=== PATIENT | male | born 2000 | race Two or more races ===

== ENCOUNTER 2020-09-11 08:44 | Observation (INO) | payer OTHER ==
[~2020-09-11] VITALS: Ht 172.7 cm; Wt 85.5 kg
[2020-09-11] VITALS (7 sets, daily range): BP systolic 109–146; BP diastolic 41–68
[2020-09-11] MEDS ORDERED: ONDANSETRON PF 4 MG/2 ML VIAL. IVP ONE (09:30)
[2020-09-11] MEDS ORDERED: fentaNYL PF VIAL 100 MCG/2 ML VIAL IVP ONE (09:30)
[2020-09-11 09:49] LABS: BASO % 0 % (0-3); EOS % 0 % (0-3); HEMATOCRIT 41.6 % (39.0-53.0); HEMOGLOBIN 14.2 g/dL (13.0-17.5); LYMPH # 1.1 x10^3/uL (1.0-4.8); LYMPH % 8 % (24-48); MEAN CORPUSCULAR HEMOGLOBIN 30 pg (25-35); MEAN CORPUSCULAR HGB CONC 34 g/dL (31-37); MEAN CORPUSCULAR VOLUME 88 fL (79-100); MONO # 0.7 x10^3/uL (0.0-1.1); MONO % 6 % (0-9); NEUT # 11.6 x10^3/uL (1.8-7.7); NEUT % 86 % (31-73); PLATELET COUNT 212 x10^3/uL (140-400); RED BLOOD COUNT 4.72 x10^6/uL (4.30-5.70); RED CELL DISTRIBUTION WIDTH 12.8 % (11.5-14.5); WHITE BLOOD COUNT 13.4 x10^3/uL (4.0-11.0)
[2020-09-11 09:51] LABS: BILIRUBIN,URINE NEGATIVE (NEG); CLARITY,URINE CLEAR; COLOR,URINE YELLOW; NITRITE,URINE NEGATIVE (NEG); PROTEIN,URINE NEGATIVE (NEG-TRACE)
[2020-09-11] MEDS ORDERED: IOHEXOL 300 MG/ML 100ML VIAL. IV ONE (10:00)
[2020-09-11 10:01] LABS: CALCIUM 8.9 mg/dL (8.5-10.1); CREATININE 1.4 mg/dL (0.7-1.3); POTASSIUM 3.7 mmol/L (3.5-5.1)
[2020-09-11 10:02] LABS: BACTERIA,URINE 0 /HPF (0-FEW); RBC,URINE 0 /HPF (0-2); WBC,URINE 0 /HPF (0-4)
[2020-09-11 10:03] LABS: AMORPHOUS SEDIMENT,UR PRESENT /HPF
[2020-09-11 10:07] LABS: ALBUMIN 4.1 g/dL (3.4-5.0); ALBUMIN/GLOBULIN RATIO 1.1 (1.0-1.7); TOTAL BILIRUBIN 0.9 mg/dL (0.2-1.0); TOTAL PROTEIN 7.9 g/dL (6.4-8.2)
[2020-09-11] MEDS ORDERED: CONTRAST GIVEN. MC PRN (10:15)
[2020-09-11 10:20] LABS: % LYMPHS 12 % (24-48); % MONOS 8 % (0-10); % SEGS 80 % (35-66); PLT ESTIMATE ADEQUATE (ADEQUATE)
--- NOTE | 2020-09-11 10:40 | RAD ---
INDICATION: Reason: RLQ pain / Spl. Instructions: IV OMNI 300 75 MLS / History: . COMPARISON: None. TECHNIQUE: Axial CT images obtained through the abdomen and pelvis with contrast. One or more of the following individualized dose reduction techniques were utilized for this examinat ion: 1. Automated exposure control; 2. Adjustment of the mA and/or kV according to patient size; 3 . Use of iterative reconstruction technique. FINDINGS: No abdominal aortic aneurysm. No intrahepatic bile duct dilation. Spleen is unremarkable. No hydronephrosis. Urinary bladder is partially distended. Small free fluid in the pelvis. The tip of the appendix measures up to proximately 12 mm and is distended with fluid with some adjace nt edema to the fat. There is an appendicolith proximal to this region. No dilated loops of bowel to suggest obstruction. IMPRESSION: * The tip of the appendix is dilated with fluid-filled lumen and adjacent edema to the fat. This is concerning for early tip appendicitis. Report called to the ER at 10:35 AM. Electronically signed by: Noe Reyes MD (09/11/2020 10:37 AM) [id number]
[2020-09-11] MEDS ORDERED: IV NORMAL SALINE 1000ML BAG 1,000 ML IV ONE ×2 (10:45→12:30)
--- NOTE | 2020-09-11 10:55 | ED.ADGEN ---
Past Medical History Past Medical History: No Pertinent History Past Surgical History: No Surgical History Smoking Status: Never Smoker Alcohol Use: None General Adult EDM: Chief Complaint: ABDOMINAL PAIN HPI: HPI: Patient is a 19 year old male presenting with low abdominal pain since yesterday. States the pain is been getting worse and he has had 1 episode of loose stools yesterday. One episode of nonbloody nonbilious emesis today. Denies any fevers, cough, shortness of breath. Denies any hematuria or dysuria. Says the pain radiates to his testicles but has no direct testicular pain. States the pain is sharp and worse with movement, improved by laying down with his hips flexed. No past medical or surgical history. Last p.o. intake yesterday, has not had anything today. Review of Systems: Review of Systems: All other systems within normal limits except for as noted in the HPI Current Medications: Current Medications Medications (Trade) Dose Ordered Sig/Aramis Start Time Stop Time Status Last Admin Dose Admin Fentanyl Citrate (Fentanyl 2ml Vial) 75 mcg 1X ONCE 09/11/20 09:30 09/11/20 09:31 DC 09/11/20 09:36 75 MCG Info (CONTRAST GIVEN -- Rx MONITORING) 1 each PRN DAILY PRN 09/11/20 10:15 09/13/20 10:14 Iohexol (Omnipaque 300 Mg/ml) 75 ml 1X ONCE 09/11/20 10:00 09/11/20 10:02 DC 09/11/20 10:13 75 ML Ondansetron HCl (Zofran) 4 mg 1X ONCE 09/11/20 09:30 09/11/20 09:31 DC 09/11/20 09:35 4 MG Sodium Chloride 1,000 ml @ 1,000 mls/hr 1X ONCE 09/11/20 10:45 09/11/20 11:44 Allergies: Allergies: Allergies Coded Allergies Type Severity Reaction Last Updated Verified No Known Drug Allergies 09/11/20 No Physical Exam: PE: Constitutional: Well developed, well nourished, no acute distress, non-toxic appearance. [] HENT: Normocephalic, atraumatic, bilateral external ears normal, nose normal. [] Eyes: PERRLA, conjunctiva normal, no discharge. [] Neck: No rigidity, supple, no stridor. [] Cardiovascular: Regular rate and rhythm, brisk cap refill [] Lungs & Thorax: Non labored symmetric respirations, no tachypnea or respiratory distress [] Abdomen: Soft, nondistended. Skin: Warm, dry, no erythema, no rash, RLQ tender with guarding [] Back: Unremarkable Extremities: No deformities, range of motion grossly intact, no lower extremity edema [] Neurologic: Alert and oriented X 3, no focal deficits noted. [] Psychologic: Affect normal, judgement normal, mood normal. [] Current Patient Data: Labs: Laboratory Tests Test 09/11/20 09:30 White Blood Count 13.4 x10^3/uL (4.0-11.0) H Red Blood Count 4.72 x10^6/uL (4.30-5.70) Hemoglobin 14.2 g/dL (13.0-17.5) Hematocrit 41.6 % (39.0-53.0) Mean Corpuscular Volume 88 fL (79-100) Mean Corpuscular Hemoglobin 30 pg (25-35) Mean Corpuscular Hemoglobin Concent 34 g/dL (31-37) Red Cell Distribution Width 12.8 % (11.5-14.5) Platelet Count 212 x10^3/uL (140-400) Neutrophils (%) (Auto) 86 % (31-73) H Lymphocytes (%) (Auto) 8 % (24-48) L Monocytes (%) (Auto) 6 % (0-9) Eosinophils (%) (Auto) 0 % (0-3) Basophils (%) (Auto) 0 % (0-3) Neutrophils # (Auto) 11.6 x10^3/uL (1.8-7.7) H Lymphocytes # (Auto) 1.1 x10^3/uL (1.0-4.8) Monocytes # (Auto) 0.7 x10^3/uL (0.0-1.1) Eosinophils # (Auto) 0.0 x10^3/uL (0.0-0.7) Basophils # (Auto) 0.0 x10^3/uL (0.0-0.2) Segmented Neutrophils % 80 % (35-66) H Lymphocytes % 12 % (24-48) L Monocytes % 8 % (0-10) Platelet Estimate Adequate (ADEQUATE) Urine Collection Type Unknown Urine Color Yellow Urine Clarity Clear Urine pH 7.0 (<5.0-8.0) Urine Specific [place] >=1.030 (1.000-1.030) Urine Protein Negative mg/dL (NEG-TRACE) Urine Glucose (UA) Negative mg/dL (NEG) Urine Ketones (Stick) Trace mg/dL (NEG) Urine Blood Negative (NEG) Urine Nitrite Negative (NEG) Urine Bilirubin Negative (NEG) Urine Urobilinogen Dipstick 1.0 mg/dL (0.2 mg/dL) Urine Leukocyte Esterase Negative (NEG) Urine RBC 0 /HPF (0-2) Urine WBC 0 /HPF (0-4) Urine Squamous Epithelial Cells Few /LPF Urine Amorphous Sediment Present /HPF Urine Bacteria 0 /HPF (0-FEW) Urine Mucus Mod /LPF Sodium Level 138 mmol/L (136-145) Potassium Level 3.7 mmol/L (3.5-5.1) Chloride Level 101 mmol/L (98-107) Carbon Dioxide Level 26 mmol/L (21-32) Anion Gap 11 (6-14) Blood Urea Nitrogen 16 mg/dL (8-26) Creatinine 1.4 mg/dL (0.7-1.3) H Estimated GFR (Cockcroft-Gault) 64.0 BUN/Creatinine Ratio 11 (6-20) Glucose Level 122 mg/dL (70-99) H Calcium Level 8.9 mg/dL (8.5-10.1) Total Bilirubin 0.9 mg/dL (0.2-1.0) Aspartate Amino Transferase (AST) 15 U/L (15-37) Alanine Aminotransferase (ALT) 34 U/L (16-63) Alkaline Phosphatase 82 U/L (46-116) Total Protein 7.9 g/dL (6.4-8.2) Albumin 4.1 g/dL (3.4-5.0) Albumin/Globulin Ratio 1.1 (1.0-1.7) Lipase 100 U/L (73-393) Laboratory Tests 09/11/20 09:30 Laboratory Tests 09/11/20 09:30 Vital Signs: Vital Signs Date Time Temp Pulse Resp B/P (MAP) Pulse Ox O2 Delivery O2 Flow Rate FiO2 09/11/20 10:16 20 96 Room Air 09/11/20 08:50 99.1 71 139/66 (90) 99.1 EKG: EKG: [] Heart Score: Risk Factors: Risk Factors: DM, Current or recent (<one month) smoker, HTN, HLP, family history of CAD, obesity. Risk Scores: Score 0 - 3: 2.5% MACE over next 6 weeks - Discharge Home Score 4 - 6: 20.3% MACE over next 6 weeks - Admit for Clinical Observation Score 7 - 10: 72.7% MACE over next 6 weeks - Early Invasive Strategies Radiology/Procedures: Radiology/Procedures: NDICATION: Reason: RLQ pain / Spl. Instructions: IV OMNI 300 75 MLS / History: . COMPARISON: None. TECHNIQUE: Axial CT images obtained through the abdomen and pelvis with contrast. One or more of the following individualized dose reduction techniques were utilized for this examination: 1. Automated exposure control; 2. Adjustment of the mA and/or kV according to patient size; 3. Use of iterative reconstruction technique. FINDINGS: No abdominal aortic aneurysm. No intrahepatic bile duct dilation. Spleen is unremarkable. No hydronephrosis. Urinary bladder is partially distended. Small free fluid in the pelvis. The tip of the appendix measures up to proximately 12 mm and is distended with fluid with some adjacent edema to the fat. There is an appendicolith proximal to this region. No dilated loops of bowel to suggest obstruction. IMPRESSION: * The tip of the appendix is dilated with fluid-filled lumen and adjacent edema to the fat. This is concerning for early tip appendicitis. Report called to the ER at 10:35 AM. [] Course & Med Decision Making: Course & Med Decision Making Pertinent Labs and Imaging studies reviewed. (See chart for details) Dr. Payton consulted for general surgery, will admit to hospitalist. [] Constanza Disclaimer: Constanza Disclaimer: This electronic medical record was generated, in whole or in part, using a voice recognition dictation system. Departure Departure Impression: Primary Impression: Acute appendicitis Disposition: 09 ADMITTED INPT THIS HOSP Admitting Physician: NORMAN Condition: STABLE Referrals: NO PCP (PCP) RACHAEL CORNELL MD Sep 11, 2020 10:55
[2020-09-11] MEDS ORDERED: ONDANSETRON PF 4 MG/2 ML VIAL. IV PRN (11:00)
[2020-09-11] MEDS: IV NORMAL SALINE 1000ML BAG 1,000 ML IV SCH ×2 (11:00→19:00)
[2020-09-11] MEDS ORDERED: PIPERACILLIN/TAZOBACTAM 3.375 GM in IV NORMAL SALINE 50ML 50 ML IV ONE (11:00)
[2020-09-11] MEDS: fentaNYL PF VIAL 100 MCG/2 ML VIAL IV PRN ×2 (11:26→12:23)
[2020-09-11] MEDS ORDERED: PIP/TAZO PER PHARMACY MC PRN (12:30)
[2020-09-11] MEDS: MORPHINE SULFATE 4 MG/ML VIAL. IV PRN (14:49)
[2020-09-11] MEDS ORDERED: PROCHLORPERAZINE 10 MG/2 ML VIAL. IVP PRN (15:15)
[2020-09-11] MEDS ORDERED: fentaNYL PF VIAL 100 MCG/2 ML VIAL IVP PRN ×2 (15:15)
[2020-09-11] MEDS ORDERED: MORPHINE SULFATE 2 MG/ML VIAL. IVP PRN (15:15)
[2020-09-11] MEDS ORDERED: IV RINGERS,LACTATED 1000ML 1,000 ML IV SCH (15:15)
[2020-09-11] MEDS ORDERED: HYDROmorphone 2 MG/ML VIAL IVP PRN (15:15)
[2020-09-11] MEDS ORDERED: MIDAZOLAM HCL/PF 2 MG/2 ML VIAL. ONE (15:23)
[2020-09-11] MEDS ORDERED: ROCURONIUM 50 MG/5 ML VIAL. ONE ×2 (15:23→17:13)
[2020-09-11] MEDS ORDERED: PROPOFOL 10 MG/ML (20ML) VIAL. IV ONE (15:23)
[2020-09-11] MEDS ORDERED: fentaNYL PF VIAL 250 MCG/5 ML VIAL ONE (15:23)
[2020-09-11] MEDS ORDERED: LIDOCAINE 2% PF 5 ML VIAL. ONE (15:23)
[2020-09-11] MEDS ORDERED: BUPIVACAINE-EPI 0.5% 30 ML VIAL KIT. ONE (16:12)
[2020-09-11] MEDS ORDERED: cefOXitin SODIUM IV Push 2 GM VIAL. IVP SCH (16:30)
--- NOTE | 2020-09-11 16:38 | PDOC1 ---
History and Physical Date of Admission Date of Admission DATE: 09/11/20 TIME: 16:38 Source Source: Chart review, Patient History of Present Illness History of Present Illness Mr. Shonda De Santiago, is a 19 year old male admit for acute abd pain. he has had new, lower quad abdominal pain since yesterday. Today, the pain was worse and he has had diarrhea, and has vomited one time. Denies any fevers, cough, shortness of breath. he has been eval by Dr. Payton, and plan has been made for acute appy, . The pain radiates to his testicles but has no direct testicular pain. Pain 6/10, btter with meds, he appears calm, worse with any movement . No past medical or surgical history. Mr. De Santiago has not eaten anything today Past Medical History Cardiovascular: No pertinent hx Pulmonary: No pertinent hx Hepatobiliary: No pertinent hx Psych: No pertinent hx Rheumatologic: No pertinent hx Infectious disease: No pertinent hx Renal/: No pertinent hx Past Surgical History Past Surgical History: No pertinent history Family History Family History: Family History Unknown Social History Smoke: No ALCOHOL: none Drugs: None Current Problem List Problem List Problems Medical Problems: (1) Acute appendicitis Status: Acute Current Medications Current Medications Current Medications Fentanyl Citrate (Fentanyl 2ml Vial) 75 mcg 1X ONCE IVP Last administered on 09/11/20at 09:36; Start 09/11/20 at 09:30; Stop 09/11/20 at 09:31; Status DC Ondansetron HCl (Zofran) 4 mg 1X ONCE IVP Last administered on 09/11/20at 09:35; Start 09/11/20 at 09:30; Stop 09/11/20 at 09:31; Status DC Iohexol (Omnipaque 300 Mg/ml) 75 ml 1X ONCE IV Last administered on 09/11/20at 10:13; Start 09/11/20 at 10:00; Stop 09/11/20 at 10:02; Status DC Info (CONTRAST GIVEN -- Rx MONITORING) 1 each PRN DAILY PRN MC SEE COMMENTS; Start 09/11/20 at 10:15; Stop 09/13/20 at 10:14 Sodium Chloride 1,000 ml @ 1,000 mls/hr 1X ONCE IV Last administered on 09/11/20at 10:58; Start 09/11/20 at 10:45; Stop 09/11/20 at 11:44; Status DC Piperacillin Sod/ Tazobactam Sod 3.375 gm/Sodium Chloride 50 ml @ 100 mls/hr 1X ONCE IV Last administered on 09/11/20at 10:58; Start 09/11/20 at 11:00; Stop 09/11/20 at 11:29; Status DC Ondansetron HCl (Zofran) 4 mg PRN Q8HRS PRN IV NAUSEA/VOMITING; Start 09/11/20 at 11:00; Stop 09/12/20 at 10:59 Fentanyl Citrate (Fentanyl 2ml Vial) 50 mcg PRN Q1HR PRN IV PAIN Last administered on 09/11/20at 12:23; Start 09/11/20 at 11:00; Stop 09/12/20 at 10:59 Sodium Chloride 1,000 ml @ 75 mls/hr [id number] IV ; Start 09/11/20 at 11:00; Stop 09/12/20 at 10:59 Morphine Sulfate (Morphine Sulfate) 4 mg PRN Q2HR PRN IV PAIN Last administered on 09/11/20at 14:49; Start 09/11/20 at 12:30 Sodium Chloride 1,000 ml @ 1,000 mls/hr 1X ONCE IV Last administered on 09/11/20at 12:26; Start 09/11/20 at 12:30; Stop 09/11/20 at 13:29; Status DC Piperacillin Sod/ Tazobactam Sod (Zosyn Per Pharmacy) 1 each PRN DAILY PRN MC SEE COMMENTS; Start 09/11/20 at 12:30 Piperacillin Sod/ Tazobactam Sod 3.375 gm/Sodium Chloride 50 ml @ 100 mls/hr Q6HRS IV ; Start 09/11/20 at 18:00 Fentanyl Citrate (Fentanyl 2ml Vial) 25 mcg PRN Q5MIN PRN IVP MILD PAIN 1-3; Start 09/11/20 at 15:15; Stop 09/12/20 at 15:14 Fentanyl Citrate (Fentanyl 2ml Vial) 50 mcg PRN Q5MIN PRN IVP MODERATE PAIN 4- 6; Start 09/11/20 at 15:15; Stop 09/12/20 at 15:14 Morphine Sulfate (Morphine Sulfate) 1 mg PRN Q10MIN PRN IVP SEVERE PAIN 7-10; Start 09/11/20 at 15:15; Stop 09/12/20 at 15:14 Ringer's Solution 1,000 ml @ 30 mls/hr Q24H IV Last administered on 09/11/20at 16:02; Start 09/11/20 at 15:15; Stop 09/12/20 at 03:14 Hydromorphone HCl (Dilaudid) 0.5 mg PRN Q10MIN PRN IVP SEVERE PAIN 7-10, 2nd CHOICE; Start 09/11/20 at 15:15; Stop 09/12/20 at 15:14 Prochlorperazine Edisylate (Compazine) 5 mg PACU PRN PRN IVP NAUSEA, MRX1; Start 09/11/20 at 15:15; Stop 09/12/20 at 15:14 Propofol (Diprivan) 200 mg STK-MED ONCE IV ; Start 09/11/20 at 15:23; Stop 09/11/20 at 15:23; Status DC Lidocaine HCl (Lidocaine Pf 2% Vial) 5 ml STK-MED ONCE .ROUTE ; Start 09/11/20 at 15:23; Stop 09/11/20 at 15:23; Status DC Midazolam HCl (Versed) 2 mg STK-MED ONCE .ROUTE ; Start 09/11/20 at 15:23; Stop 09/11/20 at 15:23; Status DC Fentanyl Citrate (Fentanyl 5ml Vial) 250 mcg STK-MED ONCE .ROUTE ; Start 09/11/20 at 15:23; Stop 09/11/20 at 15:24; Status DC Rocuronium Victor (Zemuron) 50 mg STK-MED ONCE .ROUTE ; Start 09/11/20 at 15:23; Stop 09/11/20 at 15:24; Status DC Bupivacaine HCl/ Epinephrine Bitart (Sensorcain-Epi 0.5% Kit) 30 ml STK-MED ONCE .ROUTE ; Start 09/11/20 at 16:12; Stop 09/11/20 at 16:12; Status DC Cefoxitin Sodium (Mefoxin) 2 gm 1X PREOP IVP ; Start 09/11/20 at 16:30 Allergies Allergies: Coded Allergies: No Known Drug Allergies (Unverified , 09/11/20) ROS General: YES: Chills; No: Night Sweats, Malaise, Appetite, Other PSYCHOLOGICAL ROS: No: Anxiety, Behavioral Disorder, Concentration difficultie, Decreased libido, Depression, Disorientation, Hallucinations, Hostility, Irritablity, Memory difficulties, Mood Swings, Obsessive thoughts, Physical abuse, Sexual abuse, Sleep disturbances, Suicidal ideation, Other Eyes: No Blurry vision, No Decreased vision, No Double vision, No Dry eyes, No Excessive tearing, No Eye Pain, No Itchy Eyes, No Loss of vision, No Photophobia, No Scotomata, No Uses contacts, No Uses glasses, No Other HEENT: No: Heacaches, Visual Changes, Hearing change, Nasal congestion, Nasal discharge, Oral lesions, Sinus pain, Sore Throat, Epistaxis, Sneezing, Snoring, Tinnitus, Vertigo, Vocal changes, Other Respiratory: No: Cough, Hemoptysis, Orthopnea, Pleuritic Pain, Shortness of breath, SOB with excertion, Sputum Changes, Stridor, Tachypnea, Wheezing, Other Gastrointestinal: Yes Nausea, Yes Abdominal Pain; No Vomiting, No Diarrhea, No Constipation, No Melena, No Hematochezia, No Other Genitourinary: No Dysuria, No Frequency, No Incontinence, No Hematuria, No Retention, No Discharge, No Urgency, No Pain, No Flank Pain, No Other, No , No , No , No , No , No , No Musculoskeletal: No Gait Disturbance, No Joint Pain, No Joint Stiffness, No Joint Swelling, No Muscle Pain, No Muscular Weakness, No Pain In:, No Swelling In:, No Other Neurological: No Behavorial Changes, No Bowel/Bladder ControlChng, No Confusion, No Dizziness, No Gait Disturbance, No Headaches, No Impaired Coord/balance, No Memory Loss, No Numbness/Tingling, No Seizures, No Speech Problems, No Tremors, No Visual Changes, No Weakness, No Other Skin: No Dry Skin, No Eczema, No Hair Changes, No Lumps, No Mole Changes, No Mottling, No Nail Changes, No Pruritus, No Rash, No Skin Lesion Changes, No Other, No Acne Physical Exam General: Alert, Oriented X3, mild distress HEENT: Atraumatic, PERRLA, Mucous membr. moist/pink Lungs: Clear to auscultation, Normal air movement Heart: RRR, no murmurs Extremities: No clubbing, No edema, Normal pulses Skin: No rashes, No significant lesion Neuro: Normal speech, Normal tone, Sensation intact, Cranial nerves 3-12 NL Psych/Mental Status: Mental status NL, Mood NL Vitals Vitals Vital Signs Date Time Temp Pulse Resp B/P (MAP) Pulse Ox O2 Delivery O2 Flow Rate FiO2 09/11/20 15:50 100.4 85 16 154/50 99 Room Air 100.4 Labs Labs Laboratory Tests Test 09/11/20 09:30 09/11/20 11:05 White Blood Count 13.4 x10^3/uL (4.0-11.0) Red Blood Count 4.72 x10^6/uL (4.30-5.70) Hemoglobin 14.2 g/dL (13.0-17.5) Hematocrit 41.6 % (39.0-53.0) Mean Corpuscular Volume 88 fL (79-100) Mean Corpuscular Hemoglobin 30 pg (25-35) Mean Corpuscular Hemoglobin Concent 34 g/dL (31-37) Red Cell Distribution Width 12.8 % (11.5-14.5) Platelet Count 212 x10^3/uL (140-400) Neutrophils (%) (Auto) 86 % (31-73) Lymphocytes (%) (Auto) 8 % (24-48) Monocytes (%) (Auto) 6 % (0-9) Eosinophils (%) (Auto) 0 % (0-3) Basophils (%) (Auto) 0 % (0-3) Neutrophils # (Auto) 11.6 x10^3/uL (1.8-7.7) Lymphocytes # (Auto) 1.1 x10^3/uL (1.0-4.8) Monocytes # (Auto) 0.7 x10^3/uL (0.0-1.1) Eosinophils # (Auto) 0.0 x10^3/uL (0.0-0.7) Basophils # (Auto) 0.0 x10^3/uL (0.0-0.2) Segmented Neutrophils % 80 % (35-66) Lymphocytes % 12 % (24-48) Monocytes % 8 % (0-10) Platelet Estimate Adequate (ADEQUATE) Urine Collection Type Unknown Urine Color Yellow Urine Clarity Clear Urine pH 7.0 (<5.0-8.0) Urine Specific [place] >=1.030 (1.000-1.030) Urine Protein Negative mg/dL (NEG-TRACE) Urine Glucose (UA) Negative mg/dL (NEG) Urine Ketones (Stick) Trace mg/dL (NEG) Urine Blood Negative (NEG) Urine Nitrite Negative (NEG) Urine Bilirubin Negative (NEG) Urine Urobilinogen Dipstick 1.0 mg/dL (0.2 mg/dL) Urine Leukocyte Esterase Negative (NEG) Urine RBC 0 /HPF (0-2) Urine WBC 0 /HPF (0-4) Urine Squamous Epithelial Cells Few /LPF Urine Amorphous Sediment Present /HPF Urine Bacteria 0 /HPF (0-FEW) Urine Mucus Mod /LPF Sodium Level 138 mmol/L (136-145) Potassium Level 3.7 mmol/L (3.5-5.1) Chloride Level 101 mmol/L (98-107) Carbon Dioxide Level 26 mmol/L (21-32) Anion Gap 11 (6-14) Blood Urea Nitrogen 16 mg/dL (8-26) Creatinine 1.4 mg/dL (0.7-1.3) Estimated GFR (Cockcroft-Gault) 64.0 BUN/Creatinine Ratio 11 (6-20) Glucose Level 122 mg/dL (70-99) Calcium Level 8.9 mg/dL (8.5-10.1) Total Bilirubin 0.9 mg/dL (0.2-1.0) Aspartate Amino Transf (AST/SGOT) 15 U/L (15-37) Alanine Aminotransferase (ALT/SGPT) 34 U/L (16-63) Alkaline Phosphatase 82 U/L (46-116) Total Protein 7.9 g/dL (6.4-8.2) Albumin 4.1 g/dL (3.4-5.0) Albumin/Globulin Ratio 1.1 (1.0-1.7) Lipase 100 U/L (73-393) SARS-CoV-2 Antigen (Rapid) Negative (NEGATIVE) Laboratory Tests Test 09/11/20 09:30 09/11/20 11:05 White Blood Count 13.4 x10^3/uL (4.0-11.0) Red Blood Count 4.72 x10^6/uL (4.30-5.70) Hemoglobin 14.2 g/dL (13.0-17.5) Hematocrit 41.6 % (39.0-53.0) Mean Corpuscular Volume 88 fL (79-100) Mean Corpuscular Hemoglobin 30 pg (25-35) Mean Corpuscular Hemoglobin Concent 34 g/dL (31-37) Red Cell Distribution Width 12.8 % (11.5-14.5) Platelet Count 212 x10^3/uL (140-400) Neutrophils (%) (Auto) 86 % (31-73) Lymphocytes (%) (Auto) 8 % (24-48) Monocytes (%) (Auto) 6 % (0-9) Eosinophils (%) (Auto) 0 % (0-3) Basophils (%) (Auto) 0 % (0-3) Neutrophils # (Auto) 11.6 x10^3/uL (1.8-7.7) Lymphocytes # (Auto) 1.1 x10^3/uL (1.0-4.8) Monocytes # (Auto) 0.7 x10^3/uL (0.0-1.1) Eosinophils # (Auto) 0.0 x10^3/uL (0.0-0.7) Basophils # (Auto) 0.0 x10^3/uL (0.0-0.2) Segmented Neutrophils % 80 % (35-66) Lymphocytes % 12 % (24-48) Monocytes % 8 % (0-10) Platelet Estimate Adequate (ADEQUATE) Urine Collection Type Unknown Urine Color Yellow Urine Clarity Clear Urine pH 7.0 (<5.0-8.0) Urine Specific [place] >=1.030 (1.000-1.030) Urine Protein Negative mg/dL (NEG-TRACE) Urine Glucose (UA) Negative mg/dL (NEG) Urine Ketones (Stick) Trace mg/dL (NEG) Urine Blood Negative (NEG) Urine Nitrite Negative (NEG) Urine Bilirubin Negative (NEG) Urine Urobilinogen Dipstick 1.0 mg/dL (0.2 mg/dL) Urine Leukocyte Esterase Negative (NEG) Urine RBC 0 /HPF (0-2) Urine WBC 0 /HPF (0-4) Urine Squamous Epithelial Cells Few /LPF Urine Amorphous Sediment Present /HPF Urine Bacteria 0 /HPF (0-FEW) Urine Mucus Mod /LPF Sodium Level 138 mmol/L (136-145) Potassium Level 3.7 mmol/L (3.5-5.1) Chloride Level 101 mmol/L (98-107) Carbon Dioxide Level 26 mmol/L (21-32) Anion Gap 11 (6-14) Blood Urea Nitrogen 16 mg/dL (8-26) Creatinine 1.4 mg/dL (0.7-1.3) Estimated GFR (Cockcroft-Gault) 64.0 BUN/Creatinine Ratio 11 (6-20) Glucose Level 122 mg/dL (70-99) Calcium Level 8.9 mg/dL (8.5-10.1) Total Bilirubin 0.9 mg/dL (0.2-1.0) Aspartate Amino Transf (AST/SGOT) 15 U/L (15-37) Alanine Aminotransferase (ALT/SGPT) 34 U/L (16-63) Alkaline Phosphatase 82 U/L (46-116) Total Protein 7.9 g/dL (6.4-8.2) Albumin 4.1 g/dL (3.4-5.0) Albumin/Globulin Ratio 1.1 (1.0-1.7) Lipase 100 U/L (73-393) SARS-CoV-2 Antigen (Rapid) Negative (NEGATIVE) VTE Prophylaxis Ordered VTE Prophylaxis Devices: No VTE Pharmacological Prophylaxi: Yes Assessment/Plan Assessment/Plan acute abdominal pain due to acute appendicitis leukocytosis, fever, + SIRS admit to surg, may be able to DC soon Justifications for Admission Other Justification FRITZ SUN MD Sep 11, 2020 16:38
[2020-09-11] MEDS ORDERED: DEXAMETHASONE SOD PHOS 4 MG/ML VIAL ONE (16:49)
[2020-09-11] MEDS ORDERED: ONDANSETRON PF 4 MG/2 ML VIAL. ONE (16:49)
--- NOTE | 2020-09-11 16:53 | PDOC2 ---
CONSULT Date of Consult Date of Consult DATE: 09/11/20 TIME: 16:49 Reason for Consult Reason for Consult: appendicitis Referring Physician Referring Physician: Dr. Liz Identification/Chief Complaint Chief Complaint RLQ abd pain Source Source: Chart review, Patient History of Present Illness Reason for Visit: 19 yo M with 1 day history of abd pain, localizing in RLQ. Associated N/V and diarrhea. No previous episodes. Seen in preop and is feeling better. Past Medical History Cardiovascular: No pertinent hx Past Surgical History Past Surgical History: No pertinent history Family History Family History: No Significant Social History No Current Problem List Problem List Problems Medical Problems: (1) Acute appendicitis Status: Acute Current Medications Current Medications Current Medications Fentanyl Citrate (Fentanyl 2ml Vial) 75 mcg 1X ONCE IVP Last administered on 09/11/20at 09:36; Start 09/11/20 at 09:30; Stop 09/11/20 at 09:31; Status DC Ondansetron HCl (Zofran) 4 mg 1X ONCE IVP Last administered on 09/11/20at 0 9:35; Start 09/11/20 at 09:30; Stop 09/11/20 at 09:31; Status DC Iohexol (Omnipaque 300 Mg/ml) 75 ml 1X ONCE IV Last administered on 09/11/20at 10:13; Start 09/11/20 at 10:00; Stop 09/11/20 at 10:02; Status DC Info (CONTRAST GIVEN -- Rx MONITORING) 1 each PRN DAILY PRN MC SEE COMMENTS; Start 09/11/20 at 10:15; Stop 09/13/20 at 10:14 Sodium Chloride 1,000 ml @ 1,000 mls/hr 1X ONCE IV Last administered on 09/11/20at 10:58; Start 09/11/20 at 10:45; Stop 09/11/20 at 11:44; Status DC Piperacillin Sod/ Tazobactam Sod 3.375 gm/Sodium Chloride 50 ml @ 100 mls/hr 1X ONCE IV Last administered on 09/11/20at 10:58; Start 09/11/20 at 11:00; Stop 09/11/20 at 11:29; Status DC Ondansetron HCl (Zofran) 4 mg PRN Q8HRS PRN IV NAUSEA/VOMITING; Start 09/11/20 at 11:00; Stop 09/12/20 at 10:59 Fentanyl Citrate (Fentanyl 2ml Vial) 50 mcg PRN Q1HR PRN IV PAIN Last administered on 09/11/20at 12:23; Start 09/11/20 at 11:00; Stop 09/12/20 at 10:59 Sodium Chloride 1,000 ml @ 75 mls/hr [id number] IV ; Start 09/11/20 at 11:00; St op 09/12/20 at 10:59 Morphine Sulfate (Morphine Sulfate) 4 mg PRN Q2HR PRN IV PAIN Last administered on 09/11/20at 14:49; Start 09/11/20 at 12:30 Sodium Chloride 1,000 ml @ 1,000 mls/hr 1X ONCE IV Last administered on 09/11/20at 12:26; Start 09/11/20 at 12:30; Stop 09/11/20 at 13:29; Status DC Piperacillin Sod/ Tazobactam Sod (Zosyn Per Pharmacy) 1 each PRN DAILY PRN MC SEE COMMENTS; Start 09/11/20 at 12:30 Piperacillin Sod/ Tazobactam Sod 3.375 gm/Sodium Chloride 50 ml @ 100 mls/hr Q6HRS IV ; Start 09/11/20 at 18:00 Fentanyl Citrate (Fentanyl 2ml Vial) 25 mcg PRN Q5MIN PRN IVP MILD PAIN 1-3; Start 09/11/20 at 15:15; Stop 09/12/20 at 15:14 Fentanyl Citrate (Fentanyl 2ml Vial) 50 mcg PRN Q5MIN PRN IVP MODERATE PAIN 4- 6; Start 09/11/20 at 15:15; Stop 09/12/20 at 15:14 Morphine Sulfate (Morphine Sulfate) 1 mg PRN Q10MIN PRN IVP SEVERE PAIN 7-10; Start 09/11/20 at 15:15; Stop 09/12/20 at 15:14 Ringer's Solution 1,000 ml @ 30 mls/hr Q24H IV Last administered on 09/11/20at 16:02; Start 09/11/20 at 15:15; Stop 09/12/20 at 03:14 Hydromorphone HCl (Dilaudid) 0.5 mg PRN Q10MIN PRN IVP SEVERE PAIN 7-10, 2nd CHOICE; Start 09/11/20 at 15:15; Stop 09/12/20 at 15:14 Prochlorperazine Edisylate (Compazine) 5 mg PACU PRN PRN IVP NAUSEA, MRX1; Start 09/11/20 at 15:15; Stop 09/12/20 at 15:14 Propofol (Diprivan) 200 mg STK-MED ONCE IV ; Start 09/11/20 at 15:23; Stop 09/11/20 at 15:23; Status DC Lidocaine HCl (Lidocaine Pf 2% Vial) 5 ml STK-MED ONCE .ROUTE ; Start 09/11/20 at 15:23; Stop 09/11/20 at 15:23; Status DC Midazolam HCl (Versed) 2 mg STK-MED ONCE .ROUTE ; Start 09/11/20 at 15:23; Stop 09/11/20 at 15:23; Status DC Fentanyl Citrate (Fentanyl 5ml Vial) 250 mcg STK-MED ONCE .ROUTE ; Start 09/11/20 at 15:23; Stop 09/11/20 at 15:24; Status DC Rocuronium [place] (Zemuron) 50 mg STK-MED ONCE .ROUTE ; Start 09/11/20 at 15:23; Stop 09/11/20 at 15:24; Status DC Bupivacaine HCl/ Epinephrine Bitart (Sensorcain-Epi 0.5% Kit) 30 ml STK-MED ONCE .ROUTE ; Start 09/11/20 at 16:12; Stop 09/11/20 at 16:12; Status DC Cefoxitin Sodium (Mefoxin) 2 gm 1X PREOP IVP ; Start 09/11/20 at 16:30 Allergies Allergies: Coded Allergies: No Known Drug Allergies (Unverified , 09/11/20) ROS Gastrointestinal: Yes Nausea, Yes Vomiting, Yes Abdominal Pain, Yes Diarrhea Physical Exam General: Alert, Oriented X3, Cooperative, No acute distress HEENT: Atraumatic Lungs: Normal air movement Abdomen: Soft, Other (TTP RLQ) Extremities: No clubbing, No cyanosis Skin: No rashes, No breakdown Neuro: Normal speech, Sensation intact Psych/Mental Status: Mental status NL, Mood NL Vitals VITALS Vital Signs Date Time Temp Pulse Resp B/P (MAP) Pulse Ox O2 Delivery O2 Flow Rate FiO2 09/11/20 15:50 100.4 85 16 154/50 99 Room Air 100.4 Labs Labs Laboratory Tests Test 09/11/20 09:30 09/11/20 11:05 White Blood Count 13.4 x10^3/uL (4.0-11.0) Red Blood Count 4.72 x10^6/uL (4.30-5.70) Hemoglobin 14.2 g/dL (13.0-17.5) Hematocrit 41.6 % (39.0-53.0) Mean Corpuscular Volume 88 fL (79-100) Mean Corpuscular Hemoglobin 30 pg (25-35) Mean Corpuscular Hemoglobin Concent 34 g/dL (31-37) Red Cell Distribution Width 12.8 % (11.5-14.5) Platelet Count 212 x10^3/uL (140-400) Neutrophils (%) (Auto) 86 % (31-73) Lymphocytes (%) (Auto) 8 % (24-48) Monocytes (%) (Auto) 6 % (0-9) Eosinophils (%) (Auto) 0 % (0-3) Basophils (%) (Auto) 0 % (0-3) Neutrophils # (Auto) 11.6 x10^3/uL (1.8-7.7) Lymphocytes # (Auto) 1.1 x10^3/uL (1.0-4.8) Monocytes # (Auto) 0.7 x10^3/uL (0.0-1.1) Eosinophils # (Auto) 0.0 x10^3/uL (0.0-0.7) Basophils # (Auto) 0.0 x10^3/uL (0.0-0.2) Segmented Neutrophils % 80 % (35-66) Lymphocytes % 12 % (24-48) Monocytes % 8 % (0-10) Platelet Estimate Adequate (ADEQUATE) Urine Collection Type Unknown Urine Color Yellow Urine Clarity Clear Urine pH 7.0 (<5.0-8.0) Urine Specific [place] >=1.030 (1.000-1.030) Urine Protein Negative mg/dL (NEG-TRACE) Urine Glucose (UA) Negative mg/dL (NEG) Urine Ketones (Stick) Trace mg/dL (NEG) Urine Blood Negative (NEG) Urine Nitrite Negative (NEG) Urine Bilirubin Negative (NEG) Urine Urobilinogen Dipstick 1.0 mg/dL (0.2 mg/dL) Urine Leukocyte Esterase Negative (NEG) Urine RBC 0 /HPF (0-2) Urine WBC 0 /HPF (0-4) Urine Squamous Epithelial Cells Few /LPF Urine Amorphous Sediment Present /HPF Urine Bacteria 0 /HPF (0-FEW) Urine Mucus Mod /LPF Sodium Level 138 mmol/L (136-145) Potassium Level 3.7 mmol/L (3.5-5.1) Chloride Level 101 mmol/L (98-107) Carbon Dioxide Level 26 mmol/L (21-32) Anion Gap 11 (6-14) Blood Urea Nitrogen 16 mg/dL (8-26) Creatinine 1.4 mg/dL (0.7-1.3) Estimated GFR (Cockcroft-Gault) 64.0 BUN/Creatinine Ratio 11 (6-20) Glucose Level 122 mg/dL (70-99) Calcium Level 8.9 mg/dL (8.5-10.1) Total Bilirubin 0.9 mg/dL (0.2-1.0) Aspartate Amino Transf (AST/SGOT) 15 U/L (15-37) Alanine Aminotransferase (ALT/SGPT) 34 U/L (16-63) Alkaline Phosphatase 82 U/L (46-116) Total Protein 7.9 g/dL (6.4-8.2) Albumin 4.1 g/dL (3.4-5.0) Albumin/Globulin Ratio 1.1 (1.0-1.7) Lipase 100 U/L (73-393) SARS-CoV-2 Antigen (Rapid) Negative (NEGATIVE) Laboratory Tests Test 09/11/20 09:30 09/11/20 11:05 White Blood Count 13.4 x10^3/uL (4.0-11.0) Red Blood Count 4.72 x10^6/uL (4.30-5.70) Hemoglobin 14.2 g/dL (13.0-17.5) Hematocrit 41.6 % (39.0-53.0) Mean Corpuscular Volume 88 fL (79-100) Mean Corpuscular Hemoglobin 30 pg (25-35) Mean Corpuscular Hemoglobin Concent 34 g/dL (31-37) Red Cell Distribution Width 12.8 % (11.5-14.5) Platelet Count 212 x10^3/uL (140-400) Neutrophils (%) (Auto) 86 % (31-73) Lymphocytes (%) (Auto) 8 % (24-48) Monocytes (%) (Auto) 6 % (0-9) Eosinophils (%) (Auto) 0 % (0-3) Basophils (%) (Auto) 0 % (0-3) Neutrophils # (Auto) 11.6 x10^3/uL (1.8-7.7) Lymphocytes # (Auto) 1.1 x10^3/uL (1.0-4.8) Monocytes # (Auto) 0.7 x10^3/uL (0.0-1.1) Eosinophils # (Auto) 0.0 x10^3/uL (0.0-0.7) Basophils # (Auto) 0.0 x10^3/uL (0.0-0.2) Segmented Neutrophils % 80 % (35-66) Lymphocytes % 12 % (24-48) Monocytes % 8 % (0-10) Platelet Estimate Adequate (ADEQUATE) Urine Collection Type Unknown Urine Color Yellow Urine Clarity Clear Urine pH 7.0 (<5.0-8.0) Urine Specific [place] >=1.030 (1.000-1.030) Urine Protein Negative mg/dL (NEG-TRACE) Urine Glucose (UA) Negative mg/dL (NEG) Urine Ketones (Stick) Trace mg/dL (NEG) Urine Blood Negative (NEG) Urine Nitrite Negative (NEG) Urine Bilirubin Negative (NEG) Urine Urobilinogen Dipstick 1.0 mg/dL (0.2 mg/dL) Urine Leukocyte Esterase Negative (NEG) Urine RBC 0 /HPF (0-2) Urine WBC 0 /HPF (0-4) Urine Squamous Epithelial Cells Few /LPF Urine Amorphous Sediment Present /HPF Urine Bacteria 0 /HPF (0-FEW) Urine Mucus Mod /LPF Sodium Level 138 mmol/L (136-145) Potassium Level 3.7 mmol/L (3.5-5.1) Chloride Level 101 mmol/L (98-107) Carbon Dioxide Level 26 mmol/L (21-32) Anion Gap 11 (6-14) Blood Urea Nitrogen 16 mg/dL (8-26) Creatinine 1.4 mg/dL (0.7-1.3) Estimated GFR (Cockcroft-Gault) 64.0 BUN/Creatinine Ratio 11 (6-20) Glucose Level 122 mg/dL (70-99) Calcium Level 8.9 mg/dL (8.5-10.1) Total Bilirubin 0.9 mg/dL (0.2-1.0) Aspartate Amino Transf (AST/SGOT) 15 U/L (15-37) Alanine Aminotransferase (ALT/SGPT) 34 U/L (16-63) Alkaline Phosphatase 82 U/L (46-116) Total Protein 7.9 g/dL (6.4-8.2) Albumin 4.1 g/dL (3.4-5.0) Albumin/Globulin Ratio 1.1 (1.0-1.7) Lipase 100 U/L (73-393) SARS-CoV-2 Antigen (Rapid) Negative (NEGATIVE) Images Images CT c/w tip appendicitis Assessment/Plan Assessment/Plan Appendicitis IV abx started TO OR for laparoscopic versus open appendectomy. R/R/B/A d/w pt. Risks, including, but not limited to: bleeding, infection, damage to surrounding structures, risk of anesthesia, risk of open. He appears to understand, his questions are answered and he elects to proceed. Thanks for consult! PASTORA HELMS MD Sep 11, 2020 16:53
[2020-09-11] MEDS ORDERED: GLYCOPYRROLATE 1 MG/5 ML VIAL. ONE (17:09)
[2020-09-11] MEDS ORDERED: NEOSTIGMINE METHYLSULFATE 5 MG/5 ML SYRINGE. ONE (17:09)
[2020-09-11] MEDS ORDERED: KETOROLAC 30 MG/ML VIAL. ONE (17:09)
--- NOTE | 2020-09-11 18:26 | PDOC4 ---
OPERATIVE NOTE Date: Date: Sep 11, 2020 Pre-Op Diagnosis: Appendicitis Post-Op Diagnosis: same Procedure Performed: laparoscopic appendectomy Surgeon: Sourav Helms Anesthesia Type: GETA plus local Blood Loss: 50 Specimans Obtained: appendix Findings: thickened, inflamed appendix, no perforation Complications: none Operative Note: After obtaining informed consent, patient was taken to OR, induced under GETA and prepped in the usual fashion. 5 mm port placed LLQ and suprapubic, 12 port placed epigastric, all under laparoscopic guidance. Abdominal cavity was explored and noted to be normal except as above. Appendix bluntly dissected off surrounding viscera. Defect created in mesoappendix. General load MARIA TERESA taken across base of appendix. Vascular load taken across mesoappendix. Additional hemostasis obtained on mesoappendix using clips. Appendix placed in bag, delivered and sent to pathology. Copious irrigation. No evidence of bleeding or other pathology. Ports removed without bleeding. Fascia repaired with 0 vicryl. Skin repaired with 4 0 monocryl. Dressing placed. Patient tolerated procedure well and sent to PACU in stable condition. All counts correct. Wound class is 3. PASTORA HELMS MD Sep 11, 2020 18:26
[2020-09-11] MEDS: IV RINGERS,LACTATED 1000ML 1,000 ML IV SCH (18:30)
[2020-09-11] MEDS ORDERED: NALOXONE 0.4 MG/ML VIAL. IV PRN (18:30)
[2020-09-11] MEDS ORDERED: 0.9 % SODIUM CHLORIDE 10 ML DISP.SYRIN. IV PRN (18:30)
[2020-09-11] MEDS ORDERED: IV NORMAL SALINE 1000ML BAG 1,000 ML IV SCH (18:30)
--- NOTE | 2020-09-11 19:33 | NUR ---
Patient returned to unit approximately 183
[2020-09-11] MEDS: PIPERACILLIN/TAZOBACTAM 3.375 GM in IV NORMAL SALINE 50ML 50 ML IV SCH ×2 (20:28→23:51)
[2020-09-11] MEDS: DOCUSATE SODIUM 100 MG CAPSULE. PO SCH (21:00)
[2020-09-11] MEDS: HYDROcodone/APAP 5/325MG 1 TAB TABLET PO PRN (23:50)
[2020-09-12] MEDS: MORPHINE SULFATE 4 MG/ML VIAL. IV PRN (01:00)
[2020-09-12 03:00] VITALS: BP 114/46
[2020-09-12] MEDS: IV RINGERS,LACTATED 1000ML 1,000 ML IV SCH (05:50)
[2020-09-12] MEDS: PIPERACILLIN/TAZOBACTAM 3.375 GM in IV NORMAL SALINE 50ML 50 ML IV SCH ×2 (05:51→11:11)
[2020-09-12 07:00] VITALS: BP 123/56
[2020-09-12 07:50] LABS: CALCIUM 8.1 mg/dL (8.5-10.1); CREATININE 1.3 mg/dL (0.7-1.3); GFR 69.7; POTASSIUM 3.9 mmol/L (3.5-5.1)
[2020-09-12 08:02] LABS: BASO % 0 % (0-3); EOS % 0 % (0-3); HEMATOCRIT 36.2 % (39.0-53.0); HEMOGLOBIN 12.3 g/dL (13.0-17.5); LYMPH % 9 % (24-48); MEAN CORPUSCULAR HEMOGLOBIN 30 pg (25-35); MEAN CORPUSCULAR HGB CONC 34 g/dL (31-37); MEAN CORPUSCULAR VOLUME 89 fL (79-100); MONO # 0.8 x10^3/uL (0.0-1.1); MONO % 7 % (0-9); NEUT # 9.5 x10^3/uL (1.8-7.7); NEUT % 84 % (31-73); PLATELET COUNT 197 x10^3/uL (140-400); RED BLOOD COUNT 4.09 x10^6/uL (4.30-5.70); WHITE BLOOD COUNT 11.3 x10^3/uL (4.0-11.0)
[2020-09-12] MEDS: HYDROcodone/APAP 5/325MG 1 TAB TABLET PO PRN (08:03)
[2020-09-12] MEDS: DOCUSATE SODIUM 100 MG CAPSULE. PO SCH (08:03)
--- NOTE | 2020-09-12 08:14 | PDOC ---
SURGICAL PROGRESS NOTE DATE: 09/12/20 TIME: 08:13 Subjective doing well some soreness tolerating diet urinating Vital Signs Vital Signs Date Time Temp Pulse Resp B/P (MAP) Pulse Ox O2 Delivery O2 Flow Rate FiO2 09/12/20 08:03 Room Air 09/12/20 03:00 98.6 63 20 114/46 (68) 96 98.6 09/11/20 18:15 10 I&O Intake and Output 09/12/20 06:59 Intake Total 3560 ml Output Total 1117 ml Balance 2443 ml Intake Oral 360 ml IV Total 3200 ml Output Urine Total 1110 ml Estimated Blood Loss 7 ml # Voids 2 General: Alert, Oriented X3, Cooperative Abdomen: Soft, Other (lap dressings dry) Labs Laboratory Tests Test 09/11/20 09:30 09/11/20 11:05 09/12/20 06:20 White Blood Count 13.4 x10^3/uL (4.0-11.0) 11.3 x10^3/uL (4.0-11.0) Red Blood Count 4.72 x10^6/uL (4.30-5.70) 4.09 x10^6/uL (4.30-5.70) Hemoglobin 14.2 g/dL (13.0-17.5) 12.3 g/dL (13.0-17.5) Hematocrit 41.6 % (39.0-53.0) 36.2 % (39.0-53.0) Mean Corpuscular Volume 88 fL (79-100) 89 fL (79-100) Mean Corpuscular Hemoglobin 30 pg (25-35) 30 pg (25-35) Mean Corpuscular Hemoglobin Concent 34 g/dL (31-37) 34 g/dL (31-37) Red Cell Distribution Width 12.8 % (11.5-14.5) 13.0 % (11.5-14.5) Platelet Count 212 x10^3/uL (140-400) 197 x10^3/uL (140-400) Neutrophils (%) (Auto) 86 % (31-73) 84 % (31-73) Lymphocytes (%) (Auto) 8 % (24-48) 9 % (24-48) Monocytes (%) (Auto) 6 % (0-9) 7 % (0-9) Eosinophils (%) (Auto) 0 % (0-3) 0 % (0-3) Basophils (%) (Auto) 0 % (0-3) 0 % (0-3) Neutrophils # (Auto) 11.6 x10^3/uL (1.8-7.7) 9.5 x10^3/uL (1.8-7.7) Lymphocytes # (Auto) 1.1 x10^3/uL (1.0-4.8) 1.0 x10^3/uL (1.0-4.8) Monocytes # (Auto) 0.7 x10^3/uL (0.0-1.1) 0.8 x10^3/uL (0.0-1.1) Eosinophils # (Auto) 0.0 x10^3/uL (0.0-0.7) 0.0 x10^3/uL (0.0-0.7) Basophils # (Auto) 0.0 x10^3/uL (0.0-0.2) 0.0 x10^3/uL (0.0-0.2) Segmented Neutrophils % 80 % (35-66) Lymphocytes % 12 % (24-48) Monocytes % 8 % (0-10) Platelet Estimate Adequate (ADEQUATE) Urine Collection Type Unknown Urine Color Yellow Urine Clarity Clear Urine pH 7.0 (<5.0-8.0) Urine Specific [place] >=1.030 (1.000-1.030) Urine Protein Negative mg/dL (NEG-TRACE) Urine Glucose (UA) Negative mg/dL (NEG) Urine Ketones (Stick) Trace mg/dL (NEG) Urine Blood Negative (NEG) Urine Nitrite Negative (NEG) Urine Bilirubin Negative (NEG) Urine Urobilinogen Dipstick 1.0 mg/dL (0.2 mg/dL) Urine Leukocyte Esterase Negative (NEG) Urine RBC 0 /HPF (0-2) Urine WBC 0 /HPF (0-4) Urine Squamous Epithelial Cells Few /LPF Urine Amorphous Sediment Present /HPF Urine Bacteria 0 /HPF (0-FEW) Urine Mucus Mod /LPF Sodium Level 138 mmol/L (136-145) 139 mmol/L (136-145) Potassium Level 3.7 mmol/L (3.5-5.1) 3.9 mmol/L (3.5-5.1) Chloride Level 101 mmol/L (98-107) 105 mmol/L (98-107) Carbon Dioxide Level 26 mmol/L (21-32) 25 mmol/L (21-32) Anion Gap 11 (6-14) 9 (6-14) Blood Urea Nitrogen 16 mg/dL (8-26) 11 mg/dL (8-26) Creatinine 1.4 mg/dL (0.7-1.3) 1.3 mg/dL (0.7-1.3) Estimated GFR (Cockcroft-Gault) 64.0 69.7 BUN/Creatinine Ratio 11 (6-20) Glucose Level 122 mg/dL (70-99) 115 mg/dL (70-99) Calcium Level 8.9 mg/dL (8.5-10.1) 8.1 mg/dL (8.5-10.1) Total Bilirubin 0.9 mg/dL (0.2-1.0) Aspartate Amino Transf (AST/SGOT) 15 U/L (15-37) Alanine Aminotransferase (ALT/SGPT) 34 U/L (16-63) Alkaline Phosphatase 82 U/L (46-116) Total Protein 7.9 g/dL (6.4-8.2) Albumin 4.1 g/dL (3.4-5.0) Albumin/Globulin Ratio 1.1 (1.0-1.7) Lipase 100 U/L (73-393) SARS-CoV-2 Antigen (Rapid) Negative (NEGATIVE) Laboratory Tests Test 09/11/20 09:30 09/11/20 11:05 09/12/20 06:20 White Blood Count 13.4 x10^3/uL (4.0-11.0) 11.3 x10^3/uL (4.0-11.0) Red Blood Count 4.72 x10^6/uL (4.30-5.70) 4.09 x10^6/uL (4.30-5.70) Hemoglobin 14.2 g/dL (13.0-17.5) 12.3 g/dL (13.0-17.5) Hematocrit 41.6 % (39.0-53.0) 36.2 % (39.0-53.0) Mean Corpuscular Volume 88 fL (79-100) 89 fL (79-100) Mean Corpuscular Hemoglobin 30 pg (25-35) 30 pg (25-35) Mean Corpuscular Hemoglobin Concent 34 g/dL (31-37) 34 g/dL (31-37) Red Cell Distribution Width 12.8 % (11.5-14.5) 13.0 % (11.5-14.5) Platelet Count 212 x10^3/uL (140-400) 197 x10^3/uL (140-400) Neutrophils (%) (Auto) 86 % (31-73) 84 % (31-73) Lymphocytes (%) (Auto) 8 % (24-48) 9 % (24-48) Monocytes (%) (Auto) 6 % (0-9) 7 % (0-9) Eosinophils (%) (Auto) 0 % (0-3) 0 % (0-3) Basophils (%) (Auto) 0 % (0-3) 0 % (0-3) Neutrophils # (Auto) 11.6 x10^3/uL (1.8-7.7) 9.5 x10^3/uL (1.8-7.7) Lymphocytes # (Auto) 1.1 x10^3/uL (1.0-4.8) 1.0 x10^3/uL (1.0-4.8) Monocytes # (Auto) 0.7 x10^3/uL (0.0-1.1) 0.8 x10^3/uL (0.0-1.1) Eosinophils # (Auto) 0.0 x10^3/uL (0.0-0.7) 0.0 x10^3/uL (0.0-0.7) Basophils # (Auto) 0.0 x10^3/uL (0.0-0.2) 0.0 x10^3/uL (0.0-0.2) Segmented Neutrophils % 80 % (35-66) Lymphocytes % 12 % (24-48) Monocytes % 8 % (0-10) Platelet Estimate Adequate (ADEQUATE) Urine Collection Type Unknown Urine Color Yellow Urine Clarity Clear Urine pH 7.0 (<5.0-8.0) Urine Specific [place] >=1.030 (1.000-1.030) Urine Protein Negative mg/dL (NEG-TRACE) Urine Glucose (UA) Negative mg/dL (NEG) Urine Ketones (Stick) Trace mg/dL (NEG) Urine Blood Negative (NEG) Urine Nitrite Negative (NEG) Urine Bilirubin Negative (NEG) Urine Urobilinogen Dipstick 1.0 mg/dL (0.2 mg/dL) Urine Leukocyte Esterase Negative (NEG) Urine RBC 0 /HPF (0-2) Urine WBC 0 /HPF (0-4) Urine Squamous Epithelial Cells Few /LPF Urine Amorphous Sediment Present /HPF Urine Bacteria 0 /HPF (0-FEW) Urine Mucus Mod /LPF Sodium Level 138 mmol/L (136-145) 139 mmol/L (136-145) Potassium Level 3.7 mmol/L (3.5-5.1) 3.9 mmol/L (3.5-5.1) Chloride Level 101 mmol/L (98-107) 105 mmol/L (98-107) Carbon Dioxide Level 26 mmol/L (21-32) 25 mmol/L (21-32) Anion Gap 11 (6-14) 9 (6-14) Blood Urea Nitrogen 16 mg/dL (8-26) 11 mg/dL (8-26) Creatinine 1.4 mg/dL (0.7-1.3) 1.3 mg/dL (0.7-1.3) Estimated GFR (Cockcroft-Gault) 64.0 69.7 BUN/Creatinine Ratio 11 (6-20) Glucose Level 122 mg/dL (70-99) 115 mg/dL (70-99) Calcium Level 8.9 mg/dL (8.5-10.1) 8.1 mg/dL (8.5-10.1) Total Bilirubin 0.9 mg/dL (0.2-1.0) Aspartate Amino Transf (AST/SGOT) 15 U/L (15-37) Alanine Aminotransferase (ALT/SGPT) 34 U/L (16-63) Alkaline Phosphatase 82 U/L (46-116) Total Protein 7.9 g/dL (6.4-8.2) Albumin 4.1 g/dL (3.4-5.0) Albumin/Globulin Ratio 1.1 (1.0-1.7) Lipase 100 U/L (73-393) SARS-CoV-2 Antigen (Rapid) Negative (NEGATIVE) Problem List Problems Medical Problems: (1) Acute appendicitis Status: Acute Assessment/Plan s/p appy ok to dc home FU 2 weeks Justicifation of Admission Dx: Justifications for Admission: Justification of Admission Dx: Yes Comments: appendicitis ZE DACOSTA APRN Sep 12, 2020 08:14
[2020-09-12] MEDS ORDERED: DOCU-153 PO (08:16)
[2020-09-12] MEDS ORDERED: HYDR-2761 PO (08:16)
--- NOTE | 2020-09-12 09:53 | NUR ---
SW following. Discussed with RN, pt from home, room air, regular diet, rapid COVID-19 negative. RN advised no SW needs, anticipates discharge home with self care today. SW will continue to follow.
[2020-09-12 11:00] VITALS: BP 125/57
--- NOTE | 2020-09-12 11:33 | PDOC ---
[employer] PROGRESS NOTE Date of Service DOS: DATE: 09/12/20 TIME: 11:32 Chief Complaint Chief Complaint Abd Pain History of Present Illness History of Present Illness 09/12 - Post op-day one. Pt is pleasant after having lap appendectomy yesterday. Has been following up with surgery, but appears to have tolerated procedure well. 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 Discussed d/c today with pain meds and f/o with PCP, gen surg indicated. Labs showed a decrease in WBC to 11.3 today (13.4 yesterday), pt is in no distress. Mr. Shonda De Santiago, is a 19 year old male admit for acute abd pain. he has had new, lower quad abdominal pain since yesterday. Today, the pain was worse and he has had diarrhea, and has vomited one time. Denies any fevers, cough, shortness of breath. he has been eval by Dr. Payton, and plan has been made for acute appy, . The pain radiates to his testicles but has no direct testicular pain. Pain 10, btter with meds, he appears calm, worse with any movement . No past medical or surgical history. Mr. De Santiago has not eaten anything today Vitals/I&O Vitals/I&O: Vital Signs Date Time Temp Pulse Resp B/P (MAP) Pulse Ox O2 Delivery O2 Flow Rate FiO2 09/12/20 11:00 99.5 80 18 125/57 (79) 97 Room Air 99.5 09/11/20 18:15 10 I & O 09/11/20 09/11/20 09/12/20 15:00 23:00 07:00 Intake Total 1050 ml 1050 ml 1460 ml Output Total 1117 ml Balance 1050 ml -67 ml 1460 ml Physical Exam Physical Exam: Abdominal exam showed 3 clean, dry trochar sites. Gauze is clean, dry and absorbant. General: Alert, Oriented X3, Cooperative, No acute distress Lungs: Clear Abdomen: Soft, Other (lap dressings dry) Extremities: No clubbing, No edema, Normal pulses Skin: No rashes, No breakdown, No significant lesion Labs Labs: Laboratory Tests Test 09/12/20 06:20 White Blood Count 11.3 x10^3/uL (4.0-11.0) Red Blood Count 4.09 x10^6/uL (4.30-5.70) Hemoglobin 12.3 g/dL (13.0-17.5) Hematocrit 36.2 % (39.0-53.0) Mean Corpuscular Volume 89 fL (79-100) Mean Corpuscular Hemoglobin 30 pg (25-35) Mean Corpuscular Hemoglobin Concent 34 g/dL (31-37) Red Cell Distribution Width 13.0 % (11.5-14.5) Platelet Count 197 x10^3/uL (140-400) Neutrophils (%) (Auto) 84 % (31-73) Lymphocytes (%) (Auto) 9 % (24-48) Monocytes (%) (Auto) 7 % (0-9) Eosinophils (%) (Auto) 0 % (0-3) Basophils (%) (Auto) 0 % (0-3) Neutrophils # (Auto) 9.5 x10^3/uL (1.8-7.7) Lymphocytes # (Auto) 1.0 x10^3/uL (1.0-4.8) Monocytes # (Auto) 0.8 x10^3/uL (0.0-1.1) Eosinophils # (Auto) 0.0 x10^3/uL (0.0-0.7) Basophils # (Auto) 0.0 x10^3/uL (0.0-0.2) Sodium Level 139 mmol/L (136-145) Potassium Level 3.9 mmol/L (3.5-5.1) Chloride Level 105 mmol/L (98-107) Carbon Dioxide Level 25 mmol/L (21-32) Anion Gap 9 (6-14) Blood Urea Nitrogen 11 mg/dL (8-26) Creatinine 1.3 mg/dL (0.7-1.3) Estimated GFR (Cockcroft-Gault) 69.7 Glucose Level 115 mg/dL (70-99) Calcium Level 8.1 mg/dL (8.5-10.1) Review of Systems Review of Systems: Pt has no new complains Assessment and Plan Assessmemt and Plan Assessment Acute appendicitis Plan Discharge with pain meds F/o with pcp/ gen surg as needed. Comment Review of Relevant I have reviewed the following items blas (where applicable) has been applied. Medications: Current Medications Medications (Trade) Dose Ordered Sig/Aramis Route PRN Reason Start Time Stop Time Status Last Admin Dose Admin Morphine Sulfate (Morphine Sulfate) 4 mg PRN Q2HR PRN IV PAIN 09/11/20 12:30 09/12/20 01:00 Sodium Chloride 1,000 ml @ 1,000 mls/hr 1X ONCE IV 09/11/20 12:30 09/11/20 13:29 DC 09/11/20 12:26 Piperacillin Sod/ Tazobactam Sod 3.375 gm/Sodium Chloride 50 ml @ 100 mls/hr Q6HRS IV 09/11/20 18:00 09/12/20 11:11 Ringer's Solution 1,000 ml @ 30 mls/hr Q24H IV 09/11/20 15:15 09/12/20 03:14 DC 09/11/20 16:02 Bupivacaine HCl/ Epinephrine Bitart (Sensorcain-Epi 0.5% Kit) 30 ml STK-MED ONCE .ROUTE 09/11/20 16:12 09/11/20 16:12 DC 09/11/20 17:12 Ringer's Solution 1,000 ml @ 100 mls/hr Q10H IV 09/11/20 18:30 09/12/20 05:50 Acetaminophen/ Hydrocodone Bitart (Lortab 5/325) 1 tab PRN Q4HRS PRN PO MILD PAIN 1-3 09/11/20 18:30 09/12/20 08:03 Docusate Sodium (Colace) 100 mg BID PO 09/11/20 21:00 09/12/20 08:03 Justifications for Admission Other Justification HODA HEIN III DO Sep 12, 2020 11:33 am
--- NOTE | 2020-09-12 12:33 | DS ---
DATE OF DISCHARGE: 09/12/2020 ADMISSION DIAGNOSIS: Appendicitis. DISCHARGE DIAGNOSIS: Postop day 1 laparoscopic appendectomy. HOSPITAL COURSE: The patient is a pleasant 19-year-old male who presented with appendicitis. He was admitted. We consulted General Surgery. He was taken for laparoscopic appendectomy. Today, I saw him and examined him, he is at his baseline and wants to go home. We plan to discharge. DISPOSITION: Home. ACTIVITY: As tolerated. DIET: Low sodium. MEDICATIONS: Please see the MRAD. TOTAL TIME: 32 minutes. HODA HEIN DO DR: CHAZ/raya JOB#: [id number] / [id number]
--- NOTE | 2020-09-12 14:09 | NUR ---
Discharge Note: PT DISCHARGED HOME WITH SELF CARE. PT LEFT FACILITY VIA PRIVATE VEHICLE WITH FAMILY. PT STABLE AND ALERT UPON DISCHARGE. PT PIV REMOVED FROM L AC WITHOUT COMPLICATIONS, BANDAGE APPLIED. PT EDUCATED ABOUT DISCHARGE INSTRUCTIONS, DISCHARGE MEDICATIONS, SURGICAL SITE INCISION CARE, AND FOLLOW-UP INSTRUCTIONS, NO CONCERNS VOICED AT THIS TIME. PT LEFT WITH ALL PERSONAL BELONGINGS. CRISTOBAL MEDINA Discharge instructions and discharge home medications reviewed with Patient and a copy given. All questions have been answered and understanding verbalized.
--- NOTE | 2020-09-15 18:08 | PATHOLOGY ---
[facility] Accession Number: [id number] . 01 Material submitted: . appendix - APPENDICITIS . 01 Clinical history: . APPENDICITIS . 02 Diagnosis: Appendix, laparoscopic appendectomy: - Acute appendicitis with serosal exudate. (JPM:[facility] 09/14/2020) [facility] 09/14/2020 1603 Local . 02 Comment: There is no evidence of rupture. (JPM:[facility] 09/14/2020) . 02 Electronically signed: . Manan Day MD, Pathologist NPI- [id number] . 01 Gross description: . The specimen is received in formalin, labeled "Ro Jonnathan, appendix". Received is a vermiform appendix measuring 9.8 cm in length by up to 1.1 cm in diameter with a moderate amount of attached mesoappendix. The serosal surface is pink-huerta in appearance with a slight amount of overlying adhesions. The surgical margin is closed with a line of brenda. The brenda are removed and the new margin is inked black. Sectioning reveals a pinpoint to dilated lumen filled with fecal material. The specimen is submitted representatively in cassettes A1 and A2, with the proximal margin and bisected tip submitted in cassette A1. (CAA; 09/13/2020) QAC/QAC 09/14/2020 1600 Local . 02 Pathologist provided ICD-10: K35.80 . 02 CPT . 259021 Specimen Comment: A duplicate report has been generated due to demographic updates. Performed at: 01 [facility] [address] [place], [place] [id number] MD Chris Mario MD Phone: [phone] Performed at: [address] [facility] [address] [place], [place] [id number] MD Manan Day MD Phone: [phone]
== END 2020-09-12 14:12 | disposition home or self-care (01) ==
LOC: ER 08:44 → 5 NORTH 10:45
PROVIDERS: ADMIT Internal Medicine; ATTEND Internal Medicine
DX: K35.80 Unspecified acute appendicitis (principal); Z20.822 Contact with and (suspected) exposure to COVID-19; R65.10 Systemic inflammatory response syndrome (SIRS) of non-infectious origin without acute organ dysfunction; D72.829 Elevated white blood cell count, unspecified
CPT/HCPCS: 36415; 44970; 74177; 80048; 80053; 81001; 83690; 85007; 85025; 87426; 88304; 96361; 96365; 96366; 96375; 96376; 99285; G0378; J1100; J1885; J2270; J2405; J2543; J2704; J2710; J3010; J3490; J7030; J7120; Q9967; U0003; G0379; J2250